=== PATIENT | female | born 1990 | race Asian ===

== ENCOUNTER 2024-12-17 12:10 | Outpatient (CLI) | payer OTHER | END 2024-12-17 12:52 | disposition home or self-care (01) | LOC: NST 12:10 | PROVIDERS: ATTEND Obstetrics & Gynecology | DX: Z34.83 Encounter for supervision of other normal pregnancy, third trimester (principal) ==

== ENCOUNTER 2024-12-23 11:39 | Outpatient (CLI) | payer OTHER | END 2024-12-23 12:37 | disposition home or self-care (01) | LOC: NST 11:39 | PROVIDERS: ATTEND Obstetrics & Gynecology | DX: Z34.83 Encounter for supervision of other normal pregnancy, third trimester (principal) ==

== ENCOUNTER 2025-01-11 13:42 | Inpatient (IN) | payer OTHER ==
[~2025-01-11] VITALS: Ht 160 cm; Wt 2.7 kg
[~2025-01-11 13:42] MED LIST: PRENATE ELITE1 EAC2 PO
[2025-01-11 14:40] LABS: INR 0.99; PARTIAL THROMBOPLASTIN TIME 26.8 SECONDS (22.0-34.0); PROTHROMBIN TIME 10.8 SECONDS (9.0-11.5)
[2025-01-11 14:49] LABS: HEMATOCRIT 38.2 % (36.0-45.00); MEAN CELL VOLUME 95.4 fL (80.00-100.00); MEAN CORPUSCULAR HEMOGLOBIN 32.6 pg (27.00-32.0); MEAN CORPUSCULAR HGB CONC 34.1 g/dl (32.0-36.0); PLATELET COUNT 202 K/uL (150-450); RED CELL DISTRIBUTION WIDTH 13.1 % (11.5-14.5)
[2025-01-11 15:09] LABS: ALBUMIN 2.9 gm/dL (3.4-5.0); BILIRUBIN TOTAL 0.48 mg/dL (0.3-1.2); CALCIUM 9.4 mg/dL (8.5-10.1); CREATININE SERUM 0.43 mg/dL (0.55-1.02); GFR 166.14; GLOBULINA 3.7 G/DL (2.4-3.5); POTASSIUM 4.12 mEq/L (3.5-5.1); TOTAL PROTEIN 6.6 gm/dL (6.4-8.2)
[2025-01-12] MEDS ORDERED: IRON325 MG PO (10:13)
[2025-01-12] MEDS ORDERED: MAGNESIUM200 MG PO (10:13)
[2025-01-12 10:14] VITALS: BP 103/68
[2025-01-12] MEDS ORDERED: GENTAMICIN SULFATE 40 MG/ML VIAL ONE (11:11)
[2025-01-12] MEDS ORDERED: CITRIC ACID/SODIUM CITRATE 30 ML BLIST.PACK PO ONE (11:11)
[2025-01-12] MEDS ORDERED: CLINDAMYCIN PHOSPHATE 150 MG/ML (900mg) ONE (11:11)
[2025-01-12] MEDS ORDERED: ERYTHROMYCIN BASE OPHT 1GM EACH TUBE OP ONE (11:35)
[2025-01-12] MEDS ORDERED: OXYTOCIN 10 UNITS/ML VIAL ONE ×3 (11:35→16:40)
[2025-01-12] MEDS ORDERED: MORPHINE SULFATE 4 MG/ML CARTRIDGE IV PRN (13:15)
[2025-01-12] MEDS ORDERED: RINGERS SOLUTION,LACTATED 1,000 ML IV SCH (13:30)
[2025-01-12] MEDS ORDERED: OXYTOCIN 1,000 ML IV ONE (13:30)
[2025-01-12] MEDS ORDERED: KETOROLAC TROMETHAMINE 30 MG VIAL IV SCH (14:00)
[2025-01-12] MEDS ORDERED: KETOROLAC TROMETHAMINE 30 MG VIAL ONE (14:55)
[2025-01-12] MEDS ORDERED: SIMETHICONE 125 MG CAPSULE PO SCH (17:00)
[2025-01-12] MEDS ORDERED: GABAPENTIN 300 MG CAPSULE PO SCH (17:00)
[2025-01-12] MEDS ORDERED: ONDANSETRON HCL 2 MG/ML VIAL IV SCH (18:00)
[2025-01-12] MEDS ORDERED: ACETAMINOPHEN 500 MG GEL..CAP PO SCH (18:00)
[2025-01-12 18:04] VITALS: BP 96/60
[2025-01-13] VITALS: BP 87/52; O2SAT 97
[2025-01-13 06:36] LABS: HEMATOCRIT 31.5 % (36.0-45.00); MEAN CELL VOLUME 94.7 fL (80.00-100.00); MEAN CORPUSCULAR HEMOGLOBIN 32.9 pg (27.00-32.0); MEAN CORPUSCULAR HGB CONC 34.8 g/dl (32.0-36.0); PLATELET COUNT 156 K/uL (150-450); RED BLOOD COUNT 3.33 M/uL (4.00-6.00); RED CELL DISTRIBUTION WIDTH 13.4 % (11.5-14.5)
[2025-01-13] MEDS ORDERED: KETOROLAC TROMETHAMINE 10 MG TABLET PO SCH ×2 (08:00→14:00)
[2025-01-13] MEDS ORDERED: OxyCODONE HCL 5 MG TABLET (ROXICODONE) PO PRN ×2 (08:00→12:30)
[2025-01-13] MEDS ORDERED: DOCUSATE SODIUM 100MG CAP PO SCH (09:00)
[2025-01-13 16:27] VITALS: BP 113/76; O2SAT 97
[2025-01-14] VITALS: BP 103/67
[2025-01-14 08:47] VITALS: BP 112/73
== END 2025-01-14 14:52 | disposition home or self-care (01) | DRG 788 ==
LOC: OB/GYN 01-12 09:33 → O/R 01-12 09:33 → OB/GYN 01-12 11:48
PROVIDERS: Obstetrics & Gynecology; ADMIT Obstetrics & Gynecology Maternal & Fetal Medicine; ATTEND Obstetrics & Gynecology Maternal & Fetal Medicine
PROC: 4A1HXCZ Monitoring of Products of Conception, Cardiac Rate, External Approach (ICD-10-PCS; 2025-01-12)
PROC: 10D00Z1 Extraction of Products of Conception, Low, Open Approach (ICD-10-PCS; principal; 2025-01-12 13:45)
DX: O34.29 Maternal care due to uterine scar from other previous surgery (principal); Z3A.38 38 weeks gestation of pregnancy; Z37.0 Single live birth